=== PATIENT | female | born 2000 | race Caucasian/White ===

== ENCOUNTER 2021-01-26 17:28 | Emergency (ER) | payer SELFPAY ==
[2021-01-26 17:40] VITALS: BP 114/98; PULSE 87; RESP 16; TEMP 36.8; O2SAT 100
--- NOTE | 2021-01-26 19:04 | ED.URI ---
HPI - URI/Sore Throat General Chief Complaint: Upper Respiratory Infection Stated Complaint: SHAKING/DIZZY/R LOWER LEG TINGLING Source: patient and RN notes reviewed Mode of arrival: ambulatory History of Present Illness HPI Narrative: This is a 20-year-old female presented to urgent care with complaints of throat pain. According to patient she previously went to an urgent care and was diagnosed with tonsillitis and given prednisone x5 days. She notes that her pain and swelling in her throat has not subsided. She also tested negative for strep. Patient notes that she is going to a lot of stress at this time. She also notes that she has not ate any food due to her fear of choking to . She notes that she did attempt to drink chicken broth but was afraid that she will choke. Patient educated and informed that chicken broth would not choke her and to eat a soft or liquid diet into her situation resolves. The patient denies SOB, CP, palpitation, extremity numbness, lightheadedness, dizziness, constipation, diarrhea, chills, or fever. Related Data Home Medications Medication Instructions Recorded Confirmed methylprednisolone mg 01/26/21 Allergies Allergy/AdvReac Type Severity Reaction Status Date / Time No Known Allergies Allergy Verified 01/26/21 17:53 Review of Systems Review of Systems: A 14 organ system Review of Systems was performed and pertinent positives included in the HPI, otherwise remaining ROS is negative. [facility] Family History Family History (Updated 01/26/21 @ 19:07 by KATELYNN Hernandez-Bert) Other Family history non-contributory Exam Narrative: GENERAL: This is a well-nourished, well-developed patient, in no apparent distress. HEAD: normocephalic, atraumatic. EYES: PERRL. Sclera clear/white. Vision is grossly intact. EARS: External ears normal, auditory canals clear and without drainage, TMs normal without perforation. Hearing grossly intact. NOSE: External nose normal with no obvious nasal discharge, nares without redness, no rhinorrhea. THROAT: Mucous membranes moist, posterior pharynx and tonsils edematous with erythema. NECK: Neck supple, non-tender without lymphadenopathy, masses or thyromegaly. CARDIOVASCULAR: Regular rate and rhythm without murmurs, gallops, or rubs. RESPIRATORY: Clear to auscultation. Breath sounds equal bilaterally. No wheezes, rales, or rhonchi. GASTROINTESTINAL: Abdomen soft, non-tender, nondistended. Bowel sounds are active. No hepato-splenomegaly, or palpable masses. No guarding. SKIN: warm, intact with no suspicious lesions or rash, good texture and turgor. NEURO: awake, alert, and oriented to person, place and time. There were no obvious focal neurologic abnormalities. Steady gait EXTREMITIES: Normal range of motion. No edema. No calf tenderness. Negative Homans sign bilaterally. BACK: Nontender without deformity or crepitance. No flank tenderness. Course Course Emergency Course: Patient received Augmentin for pharyngitis and hydroxyzine for anxiety Vital Signs Vital signs: Vital Signs Temperature 98.3 F 01/26/21 17:40 Pulse Rate 87 01/26/21 17:40 Respiratory Rate 16 01/26/21 17:40 Blood Pressure 114/98 H 01/26/21 17:40 Pulse Oximetry 100 01/26/21 17:40 Temperature 98.3 F 01/26/21 17:40 Pulse Rate 87 01/26/21 17:40 Respiratory Rate 16 01/26/21 17:40 Blood Pressure 114/98 H 01/26/21 17:40 Pulse Oximetry 100 01/26/21 17:40 MDM - URI/Sore Throat Differential Diagnosis Differential diagnosis: Likely upper respiratory infection, viral infection, pharyngitis and other (Anxiety) Discharge Plan Discharge Clinical Impression: Anxiety Pharyngitis Qualifiers: Pharyngitis/tonsillitis etiology: unspecified etiology Qualified Code(s): J02.9 - Acute pharyngitis, unspecified Patient Disposition: Home, Self-Care Condition: Stable Instructions: Antibiotic Form, Pharyngitis (ED), Anxiety (ED) Additional Instruction
== END 2021-01-26 19:08 | disposition home or self-care (01) ==
PROVIDERS: Emergency Provider Nurse Practitioner
DX: F41.9 Anxiety disorder, unspecified (principal); J02.9 Acute pharyngitis, unspecified
CPT/HCPCS: 99213; G0463

== ENCOUNTER → 2021-04-30 00:19 | Outpatient (CLI) | payer OTHER, SELFPAY ==
[2021-04-30 18:54] LABS: SARS-CoV-2 RNA PCR Negative
== END ==
PROVIDERS: PCP Physician Assistant; Visit Provider Otolaryngology
DX: Z01.812 Encounter for preprocedural laboratory examination (principal); Z20.822 Contact with and (suspected) exposure to COVID-19
CPT/HCPCS: C9803; U0003; U0005

== ENCOUNTER 2021-05-03 00:39 | Day surgery (SDC) | payer OTHER, SELFPAY ==
[2021-04-19 10:02] VITALS: BMI 34.0
--- NOTE | 2021-05-02 07:48 | PM.IMHP ---
H&P: HPI History of Present Illness Date/Time: 05/02/21 07:48 Chief Complaint: sleep disordered breathing, tonsillar hypertrophy, recurrent tonsillitis Narrative: patient presents for planned surgical procedure. No change in symptoms no change in history continues to deny bleeding disorder. Review of Systems Constitutional: Constitutional: Denies fatigue, Denies fever(s) and Denies lethargy Eyes: Eyes: Denies blurry vision and Denies change in vision ENT: Reports as per HPI Cardiovascular: Cardiovascular: Denies chest pain Respiratory: Respiratory: Denies cough Endocrine: Endocrine: Denies fatigue Hematologic/Lymphatic: Hematologic/Lymphatic: Denies easy bleeding, Denies easy bruising and Denies lymphadenopathy Allergic/Immunologic: Allergic/Immunologic: Denies seasonal rhinorrhea [facility] Family History Family History Father Alcoholism Depression Sibling Asthma Depression Other Family history non-contributory Social History Social History Smoking status: Current every day smoker Tobacco type: cigars Alcohol intake: current Substance use: never Substance use type: does not use Spiritual care concerns: No Meds Home Medications and Allergies Home Medications Medication Instructions Recorded Confirmed Type levonorgestrel-ethinyl estradiol 1 tablet PO DAILY 04/05/21 04/19/21 History 0.1 mg-20 mcg tablet Allergies Allergy/AdvReac Type Severity Reaction Status Date / Time No Known Allergies Allergy Verified 04/05/21 14:07 Exam Const: General: cooperative, healthy appearing, comfortable, well developed and alert HENMT: Head: normal to inspection, normocephalic and atraumatic Ears: hearing grossly normal bilaterally, external ears normal, TM's normal bilaterally and EAC's normal General nose exam: Normal external nose present, Normal nares present, No nasal polyps present, Normal nasal mucous membranes and turbinates present and Normal septum present Face and sinus: normal facial exam Mouth: Yes Normal oral and palatal mucosa present, Yes lip normal, Yes tongue normal, Yes oropharynx normal and Yes moist mucous membranes Teeth and gingiva: dentition normal and gingiva normal Throat: posterior oropharynx normal, tonisls abnormal ( 3+ edematous) and uvula midline Eyes: General: appearance normal, both eyes and all related structures Periorbital: periorbital findings normal Eyelids: eyelids normal Conjunctivae: conjunctivae normal Sclera: sclerae normal Neck: Neck: normal visual inspection, full ROM and no lymphadenopathy Thyroid: thyroid normal Lymphatic: no lymphadenopathy noted Resp: Effort & Inspection: normal respiratory effort and able to speak in complete sentences Cardio: Jugular venous distension: no JVD Neuro: Cranial nerves: Yes CN's II-XII intact bilaterally Assessment and Plan Assessment and plan (1) Dysphagia: Code(s): R13.10 - Dysphagia, unspecified Status: Acute Assessment and Plan: Plan is for the operating room for tonsillectomy. Total operative time 15 minutes. Risks benefits and costs were discussed in gait detail. Risks included bleeding infection postoperative pain postoperative bleeding need for further procedures vocal cord paralysis tongue pain ear pain throat pain mouth pain tooth pain numbness of all of the aforementioned structures. Need for postoperative narcotic use postoperative constipation. Patient voiced understanding and agreed. (2) Recurrent tonsillitis: Code(s): J03.91 - Acute recurrent tonsillitis, unspecified Status: Acute (3) Sleep-disordered breathing: Code(s): G47.30 - Sleep apnea, unspecified Status: Acute (4) Tonsillar hypertrophy: Code(s): J35.1 - Hypertrophy of tonsils Status: Acute
[2021-05-03] VITALS (7 sets, daily range): BP systolic 100–120; BP diastolic 56–76; PULSE 71–100; RESP 16–23; TEMP 36.1–37.5; O2SAT 99–100
--- NOTE | 2021-05-03 07:08 | WPDHPUPDATE1 ---
History and Physical Update Update Date/Time: 05/03/21 07:08 History and Physical has been reviewed, including an updated exam of the patient. There are NO changes in the patient's condition. Risks, benefits, and alternatives have been discussed and questions answered. Patient agrees to proceed with procedure.
[2021-05-03] MEDS: ACETAMINOPHEN 500 MG TABLET 1000 MG PO (07:49)
[2021-05-03] MEDS: LACTATED RINGERS 1,000 ML 30 ML IV CONT ×2 (08:20→10:26)
--- NOTE | 2021-05-03 08:48 | WPDANESEPPF ---
Anes - Initial Pre Proc Eval Procedure: Operation Date: 05/03/21 09:15 Proposed Procedures p Tonsillectomy - Ricky Bennett MD Date/Time: 05/03/21 08:48 Surgeon: Ricky Bennett MD Pre Op Diagnosis: hypertrophic tonsils Patient Data Age: 20 Gender: F Height: 1.63 m Weight: 86.25 kg Last Vital Signs Temp 37.5 C 05/03/21 08:13 Pulse 80 05/03/21 08:13 BP 119/60 05/03/21 08:13 Pulse Ox 100 05/03/21 08:13 Allergies Allergy/AdvReac Type Severity Reaction Status Date / Time No Known Allergies Allergy Verified 05/03/21 07:44 Home Medications Medication Instructions Recorded Confirmed Type levonorgestrel-ethinyl estradiol 1 tablet PO DAILY 04/05/21 05/03/21 History 0.1 mg-20 mcg tablet Patient hx anesthesia problems: none Family hx anesthesia problems: none Results Review: All pre-operative results and documents have been reviewed as part of the pre-operative evaluation. PMFSH Past Medical History Medical History Depression Hx of migraines CESAR (obstructive sleep apnea) Smoker Family History Family History Father Alcoholism Depression Sibling Asthma Depression Other Family history non-contributory Social History Social History Smoking status: Current every day smoker Tobacco type: cigars Alcohol intake: current Substance use: never Substance use type: does not use Living arrangements: with family Spiritual care concerns: No Anes - Eval Final PreProcedure Day of Procedure 05/03/21 08:48 Patient weight: obese Heart: regular rate and rhythm Lungs: clear to auscultation Airway: Mallampati scale class II Neurological: alert and oriented Last oral intake: >/= 8 hours ASA classification: III Emergent: no Anesthetic plan: proceed Anesthesia type and monitoring: general ETT and standard monitoring Results Review: All pre-operative results and documents have been reviewed as part of the pre-operative evaluation. Informed Consent: The patient's anesthetic plan and its attendant risks and benefits were discussed with the patient/family/POA. Questions were solicited and answers provided to the satisfaction of the patient/family/POA.
--- NOTE | 2021-05-03 10:25 | W.PM.PROC2 ---
Procedure Note - Detailed Date of Procedure 05/03/21 Pre-op Diagnosis hypertrophic tonsils, chronic tonsillitis, recurrent tonsillitis Post-op Diagnosis same Procedure Performed 1. Tonsillectomy Surgeon Ricky eBnnett MD Anesthesia general Indications See above Findings Large 4+ tonsils cryptic stones present Description of Procedure Patient correctly identified. Consent verified in the preoperative holding area. Patient brought to the operating room. Time-out performed. General anesthesia induced and an endotracheal tube was secured. Patient prepped and draped for the aforementioned procedure. Second timeout performed. McIvor mouth gag inserted to view the tonsils with findings noted above. Tonsils Dissected in the extracapsular plane using a Bovie at a setting of 8. Any bleeding was controlled with suction Bovie electrocautery at a setting of 10. This procedure was bilateral with the exact same findings. Tonsil sent for pathologic analysis. Samuel mouth gag lowered and then reopened after 30 seconds to reveal no further bleeding. McIvor mouth gag removed patient tolerated the procedure well and there were no complications. Total blood loss approximately 10 cc. I performed all dictated portions of the procedure. Care the patient was turned over to Anesthesiology. Estimated Blood Loss 10 Drains No Packing No Pathology yes Complications No immediate complications Condition stable Disposition PACU
== END 2021-05-03 12:08 | disposition home or self-care (01) ==
PROVIDERS: PCP Physician Assistant; Visit Provider Otolaryngology
PROC: (CPT 42826; principal; 2021-05-03 09:15)
DX: J35.01 Chronic tonsillitis (principal); G47.30 Sleep apnea, unspecified; F17.290 Nicotine dependence, other tobacco product, uncomplicated; E66.9 Obesity, unspecified; Z68.32 Body mass index [BMI] 32.0-32.9, adult
CPT/HCPCS: 42826; 88302; A9270; J0330; J1100; J1170; J2250; J2405; J2704; J3010; J7120